=== PATIENT | female | born 1965 | race Asian ===

== ENCOUNTER 2017-01-03 21:20 | Emergency (ER) | payer SELFPAY ==
[~2017-01-03] VITALS: Ht 160 cm; Wt 61.4 kg
[2017-01-03] MEDS ORDERED: KETOROLAC TROMETHAMINE 60 MG/2 ML VIAL IM ONE (22:30)
[2017-01-03] MEDS: ACETAMINOPHEN/CODEINE 300-30 MG TABLET PO ONE (22:50)
[2017-01-03] MEDS: MECLIZINE HCL 25 MG TABLET PO ONE (22:51)
[2017-01-03 22:59] LABS: BASOPHILS % (AUTO) 0.4 % (0.0-2.0); EOSINOPHILS % (AUTO) 1.1 % (1.0-6.0); HEMATOCRIT 37.3 % (36-46); HEMOGLOBIN 12.6 g/dL (12.0-16.0); LYMPHOCYTES # (AUTO) 1.7 K/uL (1.0-4.8); LYMPHOCYTES % (AUTO) 20.6 % (22.0-44.0); MEAN CORPUSCULAR HEMOGLOBIN 30.4 pg (26.0-34.0); MEAN CORPUSCULAR HGB CONC 33.8 G/dL (31.0-37.0); MEAN CORPUSCULAR VOLUME 90 fL (80-100); MONOCYTES # (AUTO) 0.9 K/uL (0.1-1.0); NEUTROPHILS # (AUTO) 5.5 K/uL (1.8-7.7); NEUTROPHILS % (AUTO) 66.9 % (40.0-70.0); PLATELET COUNT (AUTO) 310 K/uL (150-450); RED BLOOD CELL COUNT(AUTO) 4.15 MIL/uL (4.00-5.20); RED CELL DISTRIBUTION WIDTH 12.7 % (11.5-14.5); WHITE BLOOD COUNT (AUTO) 8.3 K/uL (4.5-11.0)
[2017-01-03 23:05] LABS: CALCIUM, TOTAL 9.1 mg/dL (8.8-10.5); CREATININE 1.25 mg/dL (0.60-1.30); POTASSIUM 3.6 mmol/L (3.5-5.1)
[2017-01-03 23:19] VITALS: BP 132/82
[2017-01-04] MEDS: MECLIZINE HCL 25 MG TABLET PO ONE (00:26)
[2017-01-04] MEDS: ACETAMINOPHEN/CODEINE 300-30 MG TABLET PO ONE (00:26)
== END 2017-01-04 00:13 | disposition home or self-care (01) ==
LOC: EMS 21:20
DX: M62.838 Other muscle spasm (principal); R42 Dizziness and giddiness
CPT/HCPCS: 36415; 72040; 80048; 84484; 85025; 93005; 96372; 99285; J1885